=== PATIENT | male | born 1985 | race African-American/Black ===

== ENCOUNTER 2017-04-18 12:26 | Emergency (ER) | payer SELFPAY ==
[~2017-04-18] VITALS: Ht 188 cm; Wt 100.0 kg
[2017-04-18 12:35] VITALS: BP 132/58; PULSE 76; RESP 16; TEMP 98.1; O2SAT 98
[2017-04-18 12:56] LABS: BLOOD, URINE NEG (NEG); GLUCOSE,URINE NEG (NEG); KETONE, URINE NEG (NEG); NITRITE,URINE NEG (NEG); PH, URINE 6.5 (5.0-8.5)
[2017-04-18 13:01] LABS: METHOD OF COLLECTION CLEAN CATCH; URINE COLOR YELLOW (YELLW/STRAW)
[2017-04-18 13:17] LABS: RBC, URINE 0-3 /hpf (0-3); SQUAMOUS EPITHELIAL CELL URINE 0-5 /hpf (0-5)
[2017-04-18 13:18] LABS: COMMENT (UR) CULTURE INDICATED; CULTURE IF INDICATED CULTURE INDICATED
[2017-04-18] MEDS ORDERED: cefTRIAXone 250 MG VIAL IM ONE (13:45)
[2017-04-18] MEDS ORDERED: LIDOCAINE HCL 1% 50 ML VIAL IM ONE (13:45)
[2017-04-18] MEDS ORDERED: AZITHROMYCIN PWD FOR SUSP 1 GM PACKET PO ONE (13:45)
--- NOTE | 2017-04-18 14:06 | PD ---
HPI Chief Complaint: Complaint Time Seen by Provider: 14:02 Travel History International Travel<30 days: No Contact w/Intl Traveler<30days: No Traveled to known affect area: No History of Present Illness HPI 31-year-old male presents to the emergency room for evaluation of dysuria for 2 months. Patient states his sexual partner was treated for chlamydia and Trichomonas. He denies any history of STD. Denies fever, chills, nausea, vomiting, testicular pain, penile pain, discharge, or hematuria. Denies chronic medical conditions or daily medications. PFSH Social History Alcohol Use: No Tobacco Use: Yes (1/2ppd) Substance Use: No Allergies-Medications (Allergen,Severity, Reaction): Coded Allergies: No Known Allergies (Unverified , 04/18/17) Reported Meds & Prescriptions Reported Meds & Active Scripts Active No Active Prescriptions or Reported Medications Review of Systems Except as stated in HPI: all other systems reviewed are Neg Physical Exam Narrative GENERAL: Well-nourished, well-developed male in no acute distress. Afebrile. Ambulatory. SKIN: Focused skin assessment warm/dry. HEAD: Normocephalic. EYES: No scleral icterus. No injection or drainage. NECK: Supple, trachea midline. No JVD or lymphadenopathy. CARDIOVASCULAR: Regular rate and rhythm without murmurs, gallops, or rubs. RESPIRATORY: Breath sounds equal bilaterally. No accessory muscle use. PSYCHIATRIC: No delusional thought processes. No hallucinations. Data Data Last Documented VS Vital Signs Date Time Temp Pulse Resp B/P Pulse Ox O2 Delivery O2 Flow Rate FiO2 04/18/17 12:35 98.1 76 16 132/58 98 Orders Urinalysis - C+S If Indicated (04/18/17 12:41) Gc And Chlamydia Pcr (04/18/17 12:41) Urine Culture (04/18/17 12:30) Azithromycin Powd Pack (Zithromax Powd P (04/18/17 13:45) Ceftriaxone Inj (Rocephin Inj) (04/18/17 13:45) Lidocaine 1% Inj (50 Ml) (Xylocaine 1% I (04/18/17 13:45) Metronidazole (Flagyl) (04/18/17 14:15) Labs Laboratory Tests Test 04/18/17 12:30 Urine Collection Type CLEAN CATCH Urine Color YELLOW Urine Turbidity CLEAR Urine pH 6.5 Urine Specific [place] 1.023 Urine Protein NEG mg/dL Urine Glucose (UA) NEG mg/dL Urine Ketones NEG mg/dL Urine Occult Blood NEG Urine Nitrite NEG Urine Bilirubin NEG Urine Leukocyte Esterase NEG Urine RBC 0-3 /hpf Urine WBC 9-14 /hpf Urine Squamous Epithelial 0-5 /hpf Cells Microscopic Urinalysis Comment CULTURE INDICATED Urine Collection Time 12:30 [facility] Medical Decision Making Medical Screen Exam Complete: Yes Emergency Medical Condition: Yes Medical Record Reviewed: Yes Differential Diagnosis Trichomonas, STD, UTI Narrative Course 31-year-old male presents to the emergency room for evaluation of dysuria for 2 months. Patient believes he has an STD because his partner was diagnosed with chlamydia and Trichomonas. He denies hematuria, testicular pain, penile pain, and penile discharge. Physical exam is reassuring. Patient is afebrile and well-appearing in the emergency room. UA shows WBCs but no other evidence of infection. Chlamydia and gonorrhea PCR pending. Patient treated empirically with azithromycin, Flagyl, and ceftriaxone. Told to follow up without department for further STD testing or return for worsening symptoms. He understands and agrees to plan. Diagnosis Primary Impression: Sexually transmitted disease Referrals: Primary Care Physician [facility] Dept. Patient Instructions: General Instructions, Sexually Transmitted Diseases (ED) Additional Instructions: Follow-up with the health Department for further testing. Do not have unprotected sex until her partner has been treated. Return for worsening symptoms. Scripts No Active Prescriptions or Reported Meds Disposition: 01 DISCHARGE HOME Condition: Stable Katt Meza Apr 18, 2017 14:06
[2017-04-18] MEDS ORDERED: metroNIDAZOLE 500 MG TAB PO ONE (14:15)
[2017-04-18 17:49] LABS: CHLAMYDIA PCR DETECTED (NOT DETECT); NEISSERIA PCR NOT DETECTED (NOT DETECT)
== END 2017-04-18 14:55 | disposition home or self-care (01) ==
LOC: PHEFT 12:26
DX: A56.01 Chlamydial cystitis and urethritis (principal); R30.0 Dysuria; F17.210 Nicotine dependence, cigarettes, uncomplicated; Z20.2 Contact with and (suspected) exposure to infections with a predominantly sexual mode of transmission
CPT/HCPCS: 81001; 87086; 87491; 87591; 96372; 99284; J0696